=== PATIENT | male | born 1960 | race African-American/Black ===

== ENCOUNTER 2021-11-15 09:16 | Inpatient (IN) ==
[2021-11-15 10:28] LABS: Basophils % 0.3 % (0.0-0.8); Eosinophils % 0.1 % (0.00-10.9); Hematocrit 41.5 VOL% (42.0-52.0); Hemoglobin 13.3 GM/DL (14.0-18.0); Immature Granulocytes % 0.6 %; Immature Granulocytes Absolute 0.04 #; Lymphocytes % 29.4 % (21.2-54.2); Mean Corpuscular Volume 84.7 FL (87-102); Mean Platelet Volume 10.6 FL (9.6-12.0); Monocytes % 13.1 % (1.7-12.7); Neutrophils % 56.5 % (38.7-73.9); Platelet Count 180 T/CUMM (130-400); Red Cell Distribution Width 14.1 % (9.3-17.3); White Blood Count 6.8 T/CUMM (4-12)
[2021-11-15 10:50] LABS: PT Patient Result 10.7 SECS (10.5-12.0)
[2021-11-15 10:59] LABS: Alanine Aminotransferase 30 U/L (16-61); Albumin 2.5 G/DL (3.4-5.0); Alkaline Phosphatase 72 U/L (45-117); Aspartate Amino Transferase 54 U/L (0-37); Blood Urea Nitrogen 32 MG/DL (7-18); Calcium 8.5 MG/DL (8.5-10.1); Carbon Dioxide 25 MMOL/L (21-32); Estimated Glom Filtration Rate 56 ML/MIN; Glucose 134 MG/DL (74-106); Osmolality,Calculated 278.1 MOS/KG (273-304); Potassium 4.8 MMOL/L (3.5-5.1); Sodium 135 MMOL/L (136-145); Total Protein 7.1 G/DL (6.4-8.2)
[2021-11-15] MEDS ORDERED: amLODIPine 5 MG TABLET PO STA (11:25)
[2021-11-15 11:55] LABS: Bilirubin,Urine Negative (Negative); Blood, Urine Small mg/dL (Negative); Glucose,Urine (UA) 50 mg/dL (Negative); Ketones,Urine Negative (Negative); Nitrite,Urine Negative (Negative); Protein,Urine >=500 MG/DL; RBC,Urine 5 /HPF (0-4); Squamous Epithelial Cell,Urine Occasional /HPF (0-10); Urine Appearance CLEAR (Clear); Urine Color Yellow (Yellow); Urine Specific Gravity 1.017 (1.001-1.035); Urine Urobilinogen < 2.0 EU/DL (<2.0)
[2021-11-15 12:17] LABS: Barbiturates Screen,Urine Negative (Negative); Benzodiazepines Screen,Urine Negative (Negative); Cannabinoid Screen,Urine Negative (Negative); Opiate Screen,Urine Negative (Negative); Phencyclidine Screen,Urine Negative (Negative)
[2021-11-15] MEDS ORDERED: DOCUSATE SODIUM 100 MG CAPSULE PO PRN (12:33)
[2021-11-15] MEDS ORDERED: ACETAMINOPHEN 325 MG TABLET PO PRN (12:33)
[2021-11-15] MEDS ORDERED: ONDANSETRON 4 MG/2 ML VIAL IV PRN (12:33)
[2021-11-15] MEDS ORDERED: ALBUTEROL 2.5 MG/3 ML NEB RESP TX PRN (12:33)
[2021-11-15] MEDS ORDERED: GLUCAGON 1 MG VIAL IM PRN (12:33)
[2021-11-15] MEDS ORDERED: LABETALOL 20 MG/4 ML SYRINGE IV PRN (12:41)
[2021-11-15] MEDS ORDERED: DEXTROSE 10% 250 ML BAG IV PRN (12:45)
[2021-11-15 13:13] LABS: Ferritin 94.4 ng/mL (26-388)
[2021-11-15 13:18] LABS: Risk Ratio 8.03; Thyroid Stimulating Hormone 1.28 uIU/ml (0.358-3.74); VLDL Cholesterol 62.6 MG/DL
[2021-11-15] MEDS: SODIUM CHLORIDE 0.9% 1,000 ML IV SCH (14:20)
[2021-11-15] MEDS: ENOXAPARIN 40 MG/0.4 ML SYRINGE SUBCUT SCH (14:20)
[2021-11-15] MEDS: BACLOFEN 10 MG TABLET PO SCH ×2 (15:15→22:18)
[2021-11-15] MEDS: FAMOTIDINE 20 MG TABLET PO SCH ×2 (15:15→22:17)
[2021-11-15] MEDS ORDERED: FAMOTIDINE 20 MG TABLET PO SCH (21:00)
[2021-11-15] MEDS: ROSUVASTATIN 20 MG TABLET PO SCH (22:17)
[2021-11-15] MEDS: ASCORBIC ACID 500 MG TABLET PO SCH (22:17)
[2021-11-15] MEDS: INSULIN REGULAR 100 UNIT/ML SUBCUT SCH (22:19)
[2021-11-16 05:29] LABS: Basophils % 0.4 % (0.0-0.8); Eosinophils % 0.5 % (0.00-10.9); Hematocrit 43.1 VOL% (42.0-52.0); Hemoglobin 13.8 GM/DL (14.0-18.0); Immature Granulocytes % 0.5 %; Immature Granulocytes Absolute 0.03 #; Lymphocytes # 2.7 10*3/uL (1.4-4.0); Lymphocytes % 47.4 % (21.2-54.2); Mean Corpuscular Volume 85.5 FL (87-102); Mean Platelet Volume 11.7 FL (9.6-12.0); Monocytes % 12.1 % (1.7-12.7); Neutrophils % 39.1 % (38.7-73.9); Platelet Count 136 T/CUMM (130-400); Red Blood Count 5.04 MC/CUMM (3.8-5.5); Red Cell Distribution Width 14.2 % (9.3-17.3); White Blood Count 5.7 T/CUMM (4-12)
[2021-11-16 05:35] LABS: Albumin 2.1 G/DL (3.4-5.0); Bilirubin,Total 0.5 MG/DL (0.20-1.00); Calcium 8.3 MG/DL (8.5-10.1); Osmolality,Calculated 279.1 MOS/KG (273-304); Potassium 4.4 MMOL/L (3.5-5.1)
[2021-11-16 05:48] LABS: Ferritin 112.6 ng/mL (26-388)
[2021-11-16] MEDS: INSULIN REGULAR 100 UNIT/ML SUBCUT SCH ×5 (07:16→21:35)
[2021-11-16] MEDS: CHOLECALCIFEROL 1,000 UNIT TABLET PO SCH (08:30)
[2021-11-16] MEDS: AZITHROMYCIN 250 MG TABLET PO SCH (08:30)
[2021-11-16] MEDS: ASCORBIC ACID 500 MG TABLET PO SCH ×2 (08:30→21:34)
[2021-11-16] MEDS: DEXAMETHASONE 4 MG TABLET PO SCH (08:30)
[2021-11-16] MEDS: FAMOTIDINE 20 MG TABLET PO SCH ×2 (08:30→21:34)
[2021-11-16] MEDS: ZINC GLUCONATE 50 MG TABLET PO SCH (08:30)
[2021-11-16] MEDS: CETIRIZINE 10 MG TABLET PO SCH (08:30)
[2021-11-16] MEDS: BACLOFEN 10 MG TABLET PO SCH ×2 (08:30→21:34)
[2021-11-16] MEDS: hydrALAZINE 20 MG/1 ML VIAL IV PRN (08:49)
[2021-11-16] MEDS ORDERED: ASPIRIN EC 81 MG TABLET PO SCH (09:00)
[2021-11-16] MEDS ORDERED: PANTOPRAZOLE 40 MG TABLET PO SCH (09:00)
[2021-11-16] MEDS: SODIUM CHLORIDE 0.9% 1,000 ML IV SCH (10:23)
[2021-11-16] MEDS: amLODIPine 10 MG TABLET PO SCH ×2 (12:58→21:34)
[2021-11-16] MEDS: METOPROLOL TARTRATE 50 MG TABLET PO SCH ×2 (12:59→21:34)
[2021-11-16] MEDS: cefTRIAXone 1,000 MG in SODIUM CHLORIDE 0.9% 100 ML IV SCH (12:59)
[2021-11-16] MEDS ORDERED: REMDESIVIR 200 MG in SODIUM CHLORIDE 0.9% 210 ML IV ONE (15:00)
[2021-11-16] MEDS: ENOXAPARIN 40 MG/0.4 ML SYRINGE SUBCUT SCH (15:07)
[2021-11-16] MEDS: ROSUVASTATIN 20 MG TABLET PO SCH (22:29)
[2021-11-17 07:11] LABS: Basophils % 0.2 % (0.0-0.8); Eosinophils % 0.5 % (0.00-10.9); Hematocrit 44.8 VOL% (42.0-52.0); Hemoglobin 14.1 GM/DL (14.0-18.0); Immature Granulocytes % 0.5 %; Immature Granulocytes Absolute 0.03 #; Lymphocytes # 2.4 10*3/uL (1.4-4.0); Lymphocytes % 43.6 % (21.2-54.2); Mean Corpuscular HGB Conc 31.5 GM/DL (32-36); Monocytes % 10.5 % (1.7-12.7); Neutrophils % 44.7 % (38.7-73.9); Platelet Count 166 T/CUMM (130-400); Red Blood Count 5.21 MC/CUMM (3.8-5.5); Red Cell Distribution Width 14.2 % (9.3-17.3); White Blood Count 5.6 T/CUMM (4-12)
[2021-11-17 07:33] LABS: Alanine Aminotransferase 29 U/L (16-61); Albumin 2.3 G/DL (3.4-5.0); Alkaline Phosphatase 74 U/L (45-117); Aspartate Amino Transferase 39 U/L (0-37); Bilirubin,Total < 0.39 MG/DL (0.20-1.00); Blood Urea Nitrogen 27 MG/DL (7-18); Calcium 8.7 MG/DL (8.5-10.1); Carbon Dioxide 25 MMOL/L (21-32); Estimated Glom Filtration Rate 69 ML/MIN; Ferritin 140.4 ng/mL (26-388); Glucose 125 MG/DL (74-106); Osmolality,Calculated 282.5 MOS/KG (273-304); Potassium 4.3 MMOL/L (3.5-5.1); Risk Ratio 6.91; Sodium 139 MMOL/L (136-145); Total Protein 7.6 G/DL (6.4-8.2); VLDL Cholesterol 40.4 MG/DL
[2021-11-17] MEDS: INSULIN REGULAR 100 UNIT/ML SUBCUT SCH ×4 (07:46→20:42)
[2021-11-17] MEDS: BACLOFEN 10 MG TABLET PO SCH ×2 (08:44→20:43)
[2021-11-17] MEDS: CETIRIZINE 10 MG TABLET PO SCH (08:44)
[2021-11-17] MEDS: CHOLECALCIFEROL 1,000 UNIT TABLET PO SCH (08:44)
[2021-11-17] MEDS: DEXAMETHASONE 4 MG TABLET PO SCH (08:45)
[2021-11-17] MEDS: ASCORBIC ACID 500 MG TABLET PO SCH ×2 (08:45→20:43)
[2021-11-17] MEDS: ZINC GLUCONATE 50 MG TABLET PO SCH (08:45)
[2021-11-17] MEDS: AZITHROMYCIN 250 MG TABLET PO SCH (08:45)
[2021-11-17] MEDS: METOPROLOL TARTRATE 50 MG TABLET PO SCH ×2 (08:45→20:42)
[2021-11-17] MEDS: FAMOTIDINE 20 MG TABLET PO SCH ×2 (08:45→20:43)
[2021-11-17] MEDS: REMDESIVIR 100 MG in SODIUM CHLORIDE 0.9% 100 ML IV SCH (11:11)
[2021-11-17] MEDS: cefTRIAXone 1,000 MG in SODIUM CHLORIDE 0.9% 100 ML IV SCH (12:30)
[2021-11-17] MEDS: SODIUM CHLORIDE 0.9% 1,000 ML IV SCH (14:33)
[2021-11-17] MEDS: FUROSEMIDE 40 MG TABLET PO SCH (16:20)
[2021-11-17] MEDS: ROSUVASTATIN 20 MG TABLET PO SCH (20:43)
[2021-11-17] MEDS: amLODIPine 10 MG TABLET PO SCH (20:44)
[2021-11-18 05:38] LABS: Basophils % 0.2 % (0.0-0.8); Eosinophils % 0.4 % (0.00-10.9); Hematocrit 42.3 VOL% (42.0-52.0); Hemoglobin 13.4 GM/DL (14.0-18.0); Immature Granulocytes % 0.4 %; Immature Granulocytes Absolute 0.02 #; Lymphocytes # 2.4 10*3/uL (1.4-4.0); Lymphocytes % 42.6 % (21.2-54.2); Mean Corpuscular HGB Conc 31.7 GM/DL (32-36); Mean Corpuscular Volume 85.8 FL (87-102); Mean Platelet Volume 11.1 FL (9.6-12.0); Monocytes % 7.6 % (1.7-12.7); Neutrophils % 48.8 % (38.7-73.9); Platelet Count 182 T/CUMM (130-400); Red Blood Count 4.93 MC/CUMM (3.8-5.5); Red Cell Distribution Width 14.3 % (9.3-17.3); White Blood Count 5.5 T/CUMM (4-12)
[2021-11-18 05:59] LABS: Alanine Aminotransferase 24 U/L (16-61); Albumin 2.2 G/DL (3.4-5.0); Alkaline Phosphatase 74 U/L (45-117); Aspartate Amino Transferase 36 U/L (0-37); Bilirubin,Total < 0.39 MG/DL (0.20-1.00); Blood Urea Nitrogen 33 MG/DL (7-18); Calcium 8.8 MG/DL (8.5-10.1); Carbon Dioxide 22 MMOL/L (21-32); Estimated Glom Filtration Rate 69 ML/MIN; Ferritin 134.5 ng/mL (26-388); Glucose 162 MG/DL (74-106); Osmolality,Calculated 287.5 MOS/KG (273-304); Sodium 139 MMOL/L (136-145)
[2021-11-18 06:04] LABS: Lymphocytes 40 % (20-55); Platelet Estimate Normal; Segmented Neutrophils 50 % (50-85); Total Cells Counted 100
[2021-11-18] MEDS: INSULIN REGULAR 100 UNIT/ML SUBCUT SCH ×4 (07:30→21:18)
[2021-11-18] MEDS: FUROSEMIDE 40 MG TABLET PO SCH (08:44)
[2021-11-18] MEDS: CHOLECALCIFEROL 1,000 UNIT TABLET PO SCH (08:44)
[2021-11-18] MEDS: ZINC GLUCONATE 50 MG TABLET PO SCH (08:44)
[2021-11-18] MEDS: FAMOTIDINE 20 MG TABLET PO SCH ×2 (08:44→21:18)
[2021-11-18] MEDS: CETIRIZINE 10 MG TABLET PO SCH (08:44)
[2021-11-18] MEDS: METOPROLOL TARTRATE 50 MG TABLET PO SCH ×2 (08:44→21:18)
[2021-11-18] MEDS: DEXAMETHASONE 4 MG TABLET PO SCH (08:44)
[2021-11-18] MEDS: BACLOFEN 10 MG TABLET PO SCH ×2 (08:44→21:18)
[2021-11-18] MEDS: ASCORBIC ACID 500 MG TABLET PO SCH ×2 (08:44→21:18)
[2021-11-18] MEDS: AZITHROMYCIN 250 MG TABLET PO SCH (08:45)
[2021-11-18] MEDS: REMDESIVIR 100 MG in SODIUM CHLORIDE 0.9% 100 ML IV SCH (10:50)
[2021-11-18] MEDS: hydrALAZINE 20 MG/1 ML VIAL IV PRN (12:10)
[2021-11-18] MEDS: cefTRIAXone 1,000 MG in SODIUM CHLORIDE 0.9% 100 ML IV SCH (16:25)
[2021-11-18] MEDS: ROSUVASTATIN 20 MG TABLET PO SCH (21:18)
[2021-11-18] MEDS: amLODIPine 10 MG TABLET PO SCH (21:18)
[2021-11-18] MEDS: LOSARTAN 50 MG TABLET PO SCH (21:18)
[2021-11-19 06:39] LABS: Basophils % 0.1 % (0.0-0.8); Eosinophils % 0.1 % (0.00-10.9); Hematocrit 40.1 VOL% (42.0-52.0); Hemoglobin 12.8 GM/DL (14.0-18.0); Immature Granulocytes % 0.4 %; Immature Granulocytes Absolute 0.03 #; Lymphocytes # 2.8 10*3/uL (1.4-4.0); Lymphocytes % 40.1 % (21.2-54.2); Mean Corpuscular HGB Conc 31.9 GM/DL (32-36); Mean Corpuscular Volume 84.6 FL (87-102); Mean Platelet Volume 10.6 FL (9.6-12.0); Monocytes % 9.3 % (1.7-12.7); Platelet Count 192 T/CUMM (130-400); Red Blood Count 4.74 MC/CUMM (3.8-5.5); Red Cell Distribution Width 14.1 % (9.3-17.3); White Blood Count 6.9 T/CUMM (4-12)
[2021-11-19 07:17] LABS: Albumin 2.2 G/DL (3.4-5.0); Bilirubin,Total 1.4 MG/DL (0.20-1.00); Calcium 8.6 MG/DL (8.5-10.1); Osmolality,Calculated 293.1 MOS/KG (273-304); Potassium 4.1 MMOL/L (3.5-5.1); Total Protein 6.7 G/DL (6.4-8.2)
[2021-11-19] MEDS: FUROSEMIDE 40 MG TABLET PO SCH (09:13)
[2021-11-19] MEDS: ZINC GLUCONATE 50 MG TABLET PO SCH (09:13)
[2021-11-19] MEDS: INSULIN REGULAR 100 UNIT/ML SUBCUT SCH ×4 (09:13→21:20)
[2021-11-19] MEDS: DEXAMETHASONE 4 MG TABLET PO SCH (09:13)
[2021-11-19] MEDS: METOPROLOL TARTRATE 50 MG TABLET PO SCH ×2 (09:13→21:19)
[2021-11-19] MEDS: FAMOTIDINE 20 MG TABLET PO SCH ×2 (09:13→21:19)
[2021-11-19] MEDS: BACLOFEN 10 MG TABLET PO SCH ×2 (09:13→21:19)
[2021-11-19] MEDS: AZITHROMYCIN 250 MG TABLET PO SCH (09:13)
[2021-11-19] MEDS: REMDESIVIR 100 MG in SODIUM CHLORIDE 0.9% 100 ML IV SCH (09:13)
[2021-11-19] MEDS: CETIRIZINE 10 MG TABLET PO SCH (09:13)
[2021-11-19] MEDS: CHOLECALCIFEROL 1,000 UNIT TABLET PO SCH (09:13)
[2021-11-19] MEDS: ASCORBIC ACID 500 MG TABLET PO SCH ×2 (09:13→21:18)
[2021-11-19] MEDS: cefTRIAXone 1,000 MG in SODIUM CHLORIDE 0.9% 100 ML IV SCH (12:02)
[2021-11-19] MEDS: LOSARTAN 50 MG TABLET PO SCH (21:19)
[2021-11-19] MEDS: amLODIPine 10 MG TABLET PO SCH (21:19)
[2021-11-19] MEDS: ROSUVASTATIN 20 MG TABLET PO SCH (21:19)
[2021-11-20 05:33] LABS: Basophils % 0.1 % (0.0-0.8); Eosinophils % 0.2 % (0.00-10.9); Hematocrit 41.7 VOL% (42.0-52.0); Hemoglobin 13.4 GM/DL (14.0-18.0); Immature Granulocytes % 1.1 %; Immature Granulocytes Absolute 0.09 #; Lymphocytes # 2.7 10*3/uL (1.4-4.0); Lymphocytes % 31.3 % (21.2-54.2); Mean Corpuscular HGB Conc 32.1 GM/DL (32-36); Mean Corpuscular Volume 84.9 FL (87-102); Mean Platelet Volume 11.1 FL (9.6-12.0); Monocytes % 10.4 % (1.7-12.7); Neutrophils % 56.9 % (38.7-73.9); Platelet Count 226 T/CUMM (130-400); Red Blood Count 4.91 MC/CUMM (3.8-5.5); Red Cell Distribution Width 14.1 % (9.3-17.3); White Blood Count 8.6 T/CUMM (4-12)
[2021-11-20 06:05] LABS: Alanine Aminotransferase 28 U/L (16-61); Albumin 2.3 G/DL (3.4-5.0); Alkaline Phosphatase 74 U/L (45-117); Aspartate Amino Transferase 28 U/L (0-37); Bilirubin,Total < 0.39 MG/DL (0.20-1.00); Blood Urea Nitrogen 34 MG/DL (7-18); Calcium 9.2 MG/DL (8.5-10.1); Carbon Dioxide 22 MMOL/L (21-32); Estimated Glom Filtration Rate 69 ML/MIN; Glucose 184 MG/DL (74-106); Osmolality,Calculated 289.5 MOS/KG (273-304); Potassium 3.9 MMOL/L (3.5-5.1); Sodium 139 MMOL/L (136-145); Total Protein 7.1 G/DL (6.4-8.2)
[2021-11-20] MEDS: INSULIN REGULAR 100 UNIT/ML SUBCUT SCH ×4 (08:48→20:53)
[2021-11-20] MEDS: ZINC GLUCONATE 50 MG TABLET PO SCH (08:48)
[2021-11-20] MEDS: CETIRIZINE 10 MG TABLET PO SCH (08:49)
[2021-11-20] MEDS: DEXAMETHASONE 4 MG TABLET PO SCH (08:49)
[2021-11-20] MEDS: FAMOTIDINE 20 MG TABLET PO SCH ×2 (08:49→20:49)
[2021-11-20] MEDS: BACLOFEN 10 MG TABLET PO SCH ×2 (08:49→20:50)
[2021-11-20] MEDS: ASCORBIC ACID 500 MG TABLET PO SCH ×2 (08:49→20:49)
[2021-11-20] MEDS: METOPROLOL TARTRATE 50 MG TABLET PO SCH ×2 (08:49→20:50)
[2021-11-20] MEDS: FUROSEMIDE 40 MG TABLET PO SCH (08:49)
[2021-11-20] MEDS: CHOLECALCIFEROL 1,000 UNIT TABLET PO SCH (08:49)
[2021-11-20] MEDS: REMDESIVIR 100 MG in SODIUM CHLORIDE 0.9% 100 ML IV SCH (09:33)
[2021-11-20] MEDS: cefTRIAXone 1,000 MG in SODIUM CHLORIDE 0.9% 100 ML IV SCH (12:19)
[2021-11-20] MEDS: hydrALAZINE 20 MG/1 ML VIAL IV PRN (12:19)
[2021-11-20] MEDS: LOSARTAN 50 MG TABLET PO SCH (20:49)
[2021-11-20] MEDS: ROSUVASTATIN 20 MG TABLET PO SCH (20:50)
[2021-11-20] MEDS: amLODIPine 10 MG TABLET PO SCH (20:50)
[2021-11-21 06:29] LABS: Basophils % 0.2 % (0.0-0.8); Eosinophils % 0.4 % (0.00-10.9); Hematocrit 40.9 VOL% (42.0-52.0); Hemoglobin 13.3 GM/DL (14.0-18.0); Immature Granulocytes % 1.8 %; Immature Granulocytes Absolute 0.17 #; Mean Corpuscular HGB Conc 32.5 GM/DL (32-36); Mean Corpuscular Volume 84.5 FL (87-102); Mean Platelet Volume 11.5 FL (9.6-12.0); Monocytes % 8.9 % (1.7-12.7); Neutrophils % 57.7 % (38.7-73.9); Platelet Count 224 T/CUMM (130-400); Red Blood Count 4.84 MC/CUMM (3.8-5.5); Red Cell Distribution Width 13.9 % (9.3-17.3); White Blood Count 9.7 T/CUMM (4-12)
[2021-11-21 06:53] LABS: Alanine Aminotransferase 25 U/L (16-61); Albumin 2.3 G/DL (3.4-5.0); Alkaline Phosphatase 68 U/L (45-117); Aspartate Amino Transferase 25 U/L (0-37); Bilirubin,Total < 0.39 MG/DL (0.20-1.00); Blood Urea Nitrogen 35 MG/DL (7-18); Calcium 9.1 MG/DL (8.5-10.1); Carbon Dioxide 21 MMOL/L (21-32); Estimated Glom Filtration Rate 69 ML/MIN; Glucose 219 MG/DL (74-106); Osmolality,Calculated 291.5 MOS/KG (273-304); Potassium 3.9 MMOL/L (3.5-5.1); Sodium 139 MMOL/L (136-145); Total Protein 6.8 G/DL (6.4-8.2)
[2021-11-21] MEDS ORDERED: ASPIRIN EC 81 MG TABLET PO SCH (09:00)
[2021-11-21] MEDS: ASCORBIC ACID 500 MG TABLET PO SCH (09:03)
[2021-11-21] MEDS: CETIRIZINE 10 MG TABLET PO SCH (09:03)
[2021-11-21] MEDS: ZINC GLUCONATE 50 MG TABLET PO SCH (09:03)
[2021-11-21] MEDS: METOPROLOL TARTRATE 50 MG TABLET PO SCH (09:03)
[2021-11-21] MEDS: FAMOTIDINE 20 MG TABLET PO SCH (09:03)
[2021-11-21] MEDS: DEXAMETHASONE 4 MG TABLET PO SCH (09:03)
[2021-11-21] MEDS: CHOLECALCIFEROL 1,000 UNIT TABLET PO SCH (09:04)
[2021-11-21] MEDS: BACLOFEN 10 MG TABLET PO SCH (09:04)
[2021-11-21] MEDS: FUROSEMIDE 40 MG TABLET PO SCH (09:04)
[2021-11-21] MEDS: INSULIN REGULAR 100 UNIT/ML SUBCUT SCH ×2 (09:04→12:17)
[2021-11-21 11:50] VITALS: BP 171/100
[2021-11-21] MEDS: cefTRIAXone 1,000 MG in SODIUM CHLORIDE 0.9% 100 ML IV SCH (12:17)
== END 2021-11-21 14:07 | disposition home or self-care (01) | DRG 64 ==
LOC: N.EDINP 09:16 → N.ED 09:16 → N.EDINP 18:18 → N.5E 18:32 → SUATTDRO 11-17 12:51
PROVIDERS: ADMIT Internal Medicine; ATTEND Internal Medicine